=== PATIENT | female | born 1990 | race Caucasian/White ===

== ENCOUNTER 2017-07-09 14:41 | Emergency (ER) | payer MEDICAID ==
--- NOTE | 2017-07-09 14:54 | NUR ---
called to triage, no answer. decided to leave per admitting
== END 2017-07-09 14:54 | disposition left against medical advice (07) ==
LOC: ER 14:50
DX: Z53.21 Procedure and treatment not carried out due to patient leaving prior to being seen by health care provider (principal)
CPT/HCPCS: Z7610